=== PATIENT | male | born 1965 | race African-American/Black ===

== ENCOUNTER 2016-11-24 11:42 | Day surgery (SDC) | payer BC ==
[~2016-11-24] VITALS: Ht 172.7 cm; Wt 108.2 kg
[2016-11-24] MEDS ORDERED: LUNESTA (12:12)
[2016-11-24] MEDS ORDERED: EDARBYCLOR (12:12)
[2016-11-24 12:23] VITALS: Ht 172.7 cm; Wt 108.2 kg
[2016-11-24] MEDS ORDERED: PROPOFOL 40 ML ONE (13:33)
[2016-11-24] MEDS ORDERED: MIDAZOLAM 1 MG/ML 2 ML INJ ONE (13:33)
[2016-11-24] MEDS ORDERED: FENTAnyl 50 MCG/ML VIAL ONE (13:34)
[2016-11-24 14:10] VITALS: BP 119/66; PULSE 80; RESP 18
[2016-11-24 15:25] VITALS: BP 112/73; PULSE 76; RESP 17
--- NOTE | 2016-11-25 08:02 | GILP ---
DATE OF PROCEDURE: 11/24/2016 PROCEDURE: Colonoscopy to cecum. BRIEF HISTORY AND INDICATIONS: The patient here for colorectal cancer screening. PREMEDICATION: Monitored anesthesia care by anesthesiologist. SURGEON: Colby Watkins MD INSTRUMENT USED: Olympus colonoscope. PREPARATION: Adequate. TECHNIQUE: After informed consent, with the patient/relatives understanding the procedure, its indic ations potential risks and complications, including but not limited to: allergic reaction, bleeding, perforation, infection, missed lesions and after all pertinent questions were answered to the patie nt's satisfaction, the patient/relatives signed the witnessed informed consent. Following this, premedication was administered slowly IV push by under careful cardiovascular and re spiratory monitoring with pulse oximetry, automatic blood pressure and dental insurance coordinator. Once the sedativ e effect was achieved, the patient was placed in the left lateral decubitus position, digital rectal examination was performed. The colonoscope was then introduced and advanced under visual control th roughout all segments of the colon including: the rectum, sigmoid, descending colon, splenic flexure , transverse colon, hepatic flexure, ascending colon and finally reaching the cecum which was clearl y identified by transillumination, finger indentation and the ileocecal valve. Careful examination o f the mucosa of the lower gastrointestinal tract both on insertion as well as withdrawal of the inst rument disclosed the following findings: Rectal Examination: No evidence of perirectal disease, no masses. Colonic Mucosa: The colonic mucosa is remarkable for mild diverticulosis in the left side of the co aaron, and extensive lavage was applied. No additional abnormalities are noted. The ileocecal valve was clearly identified and appears unrem arkable. One withdrawal of the instrument, moderate sized internal hemorrhoids are present. The instrument was then withdrawn, the patient tolerated the procedure well and was transferred out of the Endoscopy Suite awake and in good condition to continue recovery under observation. IMPRESSION: 1. Mild diverticulosis. 2. Moderate size internal hemorrhoids. PLAN: The patient will be followed up as an outpatient. Annual Hemoccult stool testing is recommend ed. Colonoscopy in 10 years is recommended as well. Dictated By: COLBY WATKINS MS/MARCOS Conf#: [id number] DID#: [id number]
== END 2016-11-24 15:26 | disposition home or self-care (01) ==
LOC: GIL 11:42
PROVIDERS: ATTEND Internal Medicine Gastroenterology
DX: Z12.11 Encounter for screening for malignant neoplasm of colon (principal); K57.30 Diverticulosis of large intestine without perforation or abscess without bleeding; K64.8 Other hemorrhoids; I10 Essential (primary) hypertension; E78.5 Hyperlipidemia, unspecified; Z80.0 Family history of malignant neoplasm of digestive organs
CPT/HCPCS: 45378; J2250; J3010; Z7610